=== PATIENT | female | born 1995 | race Caucasian/White ===

== ENCOUNTER 2016-06-22 05:01 | Emergency (ER) | payer OTHER ==
[~2016-06-22] VITALS: Ht 188 cm; Wt 86.2 kg
[2016-06-22 05:02] VITALS: BP 146/78; PULSE 87; RESP 16; TEMP 97.8; O2SAT 99
== END 2016-06-22 05:20 ==
LOC: SED 05:01
DX: Z02.89 Encounter for other administrative examinations (principal)
CPT/HCPCS: 99283